=== PATIENT | male | born 1990 | race Caucasian/White ===

== ENCOUNTER 2020-10-05 22:18 | Emergency (ER) | payer OTHER ==
[2020-10-06] MEDS ORDERED: IBUPROFEN800 MG PO (02:14)
[2020-10-06] MEDS ORDERED: PERCOCET 7.5-31 EACH PO (02:14)
[2020-10-06] MEDS ORDERED: ROBAXIN750 MG PO (02:14)
[2020-10-06] MEDS ORDERED: MEDROL 4MG DOSEP4 MG PO (02:14)
== END 2020-10-06 02:30 | disposition home or self-care (01) ==
LOC: FER 22:18
DX: M54.5 Low back pain (principal)
CPT/HCPCS: 72131; 96372; J1100; J1170; J1885